=== PATIENT | female | born 1980 | race Two or more races ===

== ENCOUNTER → 2018-05-27 | Outpatient (CLI) | payer BC ==
--- NOTE | 2018-05-27 13:37 | KCIC ---
Bilateral digital screening mammograms: Reason for examination: Routine baseline screening. Bilateral mammograms in CC and oblique projections were obtained with 2-D imaging. Interpretation was made with the benefit of CAD. The skin and nipples show no abnormalities. No abnormal axillary lymph nodes are seen bilateral breast implants are present and appear to be intact. The breast parenchyma is heterogeneously dense. (Breast density: Category C.) There is a 7.2 mm circumscribed nodule present in the 6:00 position of the left breast. Recommend further evaluation with ultrasound. There are no other dominant masses, suspicious calcifications or architectural distortion. Impression: 7.2 mm circumscribed nodule at the 6:00 position of the left breast. Recommend further evaluation with ultrasound. Your patient's mammogram demonstrates that she has dense breast tissue (breast density category C or D), which could hide abnormalities, and if she has other risk factors for breast cancer that have been identified, she might benefit from supplemental screening tests that may be suggested by you as her ordering physician. Dense breast tissue, in and of itself, is a relatively common condition. Therefore, this information is not provided to cause undue concern, but rather to raise your awareness and to promote discussion with your patient regarding the presence of other risk factors, in addition to dense breast tissue. Your patient's mammography results will be sent to her. BI-RAD Category 0: Incomplete. Needs additional imaging evaluation. "Our facility is accredited by the [employer] Mammography [employer]." This patient's information has been entered into a reminder system for the patient to be notified with the results of her examination and a target date for the next mammogram. Electronically signed by: Lucrecia Simpson MD (05/27/2018 1:32 PM) [id number]
== END | disposition home or self-care (01) ==
LOC: KCIC MAMMO 11:00
DX: Z12.31 Encounter for screening mammogram for malignant neoplasm of breast (principal); N63.24 Unspecified lump in the left breast, lower inner quadrant
CPT/HCPCS: 77067

== ENCOUNTER → 2018-05-31 | Outpatient (CLI) | payer BC ==
--- NOTE | 2018-05-31 15:39 | KCIC ---
Left breast ultrasound: Reason for examination: Nodule on screening mammogram. Comparison is made to mammographic exam dated 05/27/2018. Ultrasound examination of the left breast was performed with attention to the area of mammographic concern. Breast implant is present. In the 6:00 position 6 cm from the nipple and corresponding to the area of mammographic concern, there is a 5.1 x 6.6 mm hypoechoic circumscribed lesion in parallel orientation which probably represents a complicated cyst. There is an additional small 3.4 mm hypoechoic lesion consistent with some fibrocystic change at the 7:00 position 2 cm from the nipple as well as a small hypoechoic circumscribed lesion in the 7:00 position 2 cm from the nipple adjacent to the implant which measures 4.7 mm in greatest dimension is also consistent with a small fibrocystic granulomatous lesion. No suspicious-appearing lesions are seen. IMPRESSION: Multiple benign hypoechoic lesions consistent with complicated cysts and fibrocystic changes with the lesion at the 6:00 position corresponding to the area of mammographic concern. No suspicious lesions are seen. Recommend reevaluation with ultrasound in 6 months. BI-RADS Category 3: Probably Benign. "Our facility is accredited by the [employer] Mammography Program." This patient's information has been entered into a reminder system for the patient to be notified with the results of her examination and a target date for the next mammogram. Electronically signed by: Lucrecia Simpson MD (05/31/2018 3:36 PM) [id number]
== END | disposition home or self-care (01) ==
LOC: KCIC US 08:51
DX: N64.89 Other specified disorders of breast (principal)
CPT/HCPCS: 76641

== ENCOUNTER → 2019-05-05 | Outpatient (CLI) | payer BC ==
--- NOTE | 2019-05-05 10:40 | KCIC ---
Left breast ultrasound: Reason for examination: Follow-up fibrocystic nodules. Comparison is made to previous study dated 05/31/2018. Ultrasound examination of the left breast and axilla was performed. There continues to be 4.9 mm hypoechoic fibrocystic type lesion at the 6:00 position 6 cm from the nipple which shows a slight decrease in size. There continues to be a small hypoechoic fibrocystic lesion at the 7:00 position 2 cm from the nipple measuring 2.9 mm in size which is slightly smaller. There is also a 3.7 mm hypoechoic lesion probably representing a complicated cyst at the 9:00 position 2 cm from the nipple. No suspicious-appearing nodules are seen. No abnormal appearing lymph nodes are seen in the axilla. Breast implant appears to be intact. IMPRESSION: Benign-appearing cystic and fibrocystic lesions with decrease in size from previous exam. Recommend routine mammographic follow-up. BI-RADS Category 2: Benign. "Our facility is accredited by the [employer] Mammography Program." This patient's information has been entered into a reminder system for the patient to be notified with the results of her examination and a target date for the next mammogram. Electronically signed by: Lucrecia Simpson MD (05/05/2019 10:37 AM) [id number]
== END | disposition home or self-care (01) ==
LOC: KCIC US 09:57
PROVIDERS: ATTEND Student in an Organized Health Care Education/Training Program
DX: N60.12 Diffuse cystic mastopathy of left breast (principal)
CPT/HCPCS: 76641